=== PATIENT | female | born 1970 | race Caucasian/White ===

== ENCOUNTER 2017-05-30 20:33 | Observation (INO) | payer SELFPAY ==
[~2017-05-30] VITALS: Ht 172.7 cm; Wt 95.2 kg
--- NOTE | ~2017-05-30 | ER ---
ADMIT: 05/30/2017 RM/LOC: [address] [facility] MR#: [id number] [address] [facility] [address] [place], [place] [address] CHAR [address] [place] [address] Emergency Room Report SEX: F AGE: 47 : 1970 DATE: 05/30/2017 HISTORY OF PRESENT ILLNESS: A 47-year-old female, who is a heroin and meth drug abuser comes in with complaints of abdominal pain and short of breath over the past several days. She does have an extensive cardiac history including a two-way vessel bypass done several years ago. She has been noncompliant with her medications. Last used meth approximately 3 or 4 days ago. She describes abdominal pain as severe, times crampy, diffuse across her abdomen, shortness of breath is associated with activity. PHYSICAL EXAMINATION: GENERAL: Reveals a 47-year-old female, appears older than her stated age. LUNGS: Have diminished breath sounds at the bases bilaterally. CARDIOVASCULAR: No murmur, rapid rhythm. No gallops or rubs. ABDOMEN: Diffusely tender, but soft. No guarding or rebound. EXTREMITIES: Reveal numerous scabs over her upper extremities and lower extremities. EMERGENCY ROOM COURSE: Cardiac workup was initiated as well as an addition of a CMP. CBC was normal. EKG was sinus tachycardia. Electrolytes were within normal parameters. BNP was 28,037, a troponin of 0.071. CT of the abdomen revealed a thickened gallbladder wall. At the time of this dictation, we are waiting ultrasound of the right upper quadrant to view the gallbladder. DIAGNOSES: The patient is being admitted in the event with a diagnoses of; 1. Congestive heart failure. 2. Urinary tract infection. 3. Noncompliance with medication. She is given Lasix in the Emergency Department as well as Ativan and IV Tylenol for pain control. Juan Ram MD/ erik JOB #: [id number] CC: Adela Cade MD, Attending Physician Dorys Espinosa MD, Family Physician
--- NOTE | ~2017-05-30 | ECH ---
Transthoracic Echocardiography Report (TTE) Demographics Patient Name ALEK, Date of Study 05/31/2017 CHAR Patient Number [id number] Visit Number [id number] Date of 1970 Room Number 424 Accession Number [id number] Gender Female Age 47 year(s) Referring Rayo Richardson Circuit Board Inspector Zayra Keene MD [facility] Physician Interpreting Thu Montes MD [employer] Physician Supervising Ordering Physician Rayo Richardson MD/ANN-MARIE BURT Nurse Stress Glass Embosser Conclusions Contractility Score Summary Global Left Ventricular Hypokinesis was noted. Summary Technically difficult exam to perform. Patient restless and uncooperative due to withdrawl symptoms. Image quality is good. The estimated left ventricular ejection fraction is 15-20%. The left ventricle is severely dilated . Mild eccentric left ventricular hypertrophy. Patient refused to perform valsalva to assess diastolic function. Moderately dilated right ventricle with reduced function. Severe biatrial enlargement. Moderate mitral regurgitation by color Doppler. Mild-moderate tricuspid regurgitation by color Doppler. There is mild pulmonary hypertension. The pulmonary pressure (RVSP) is 40 mmHg. Procedure Type of Study TTE procedure:Echo Complete SF. Procedure Date Date: 05/31/2017 Start: 09:25 AM Technical Quality: Good visualization Indications:Congestive heart failure, Shortness of breath and Chest pain. Additional Indications:Meth/heroin abuse Appropriate Use Criteria: 9 Height: 72 inches Weight: 209 pounds BSA: 2.17 m Rhythm: Irregular HR: 105 bpm BP: 153/116 mmHg M-Mode/2D Measurements LV Diastolic Dimension: 7.24 cm LV Systolic Dimension: 7.12 cm LV Septum Diastolic: 0.88 cm LV PW Diastolic: 1.12 cm AO Root Dimension: 3.06 cm Cardiac Output: 2.29 l/min LA Dimension: 5.52 cm Cardiac Index: 1.06 l/min*m RV Diastolic Dimension: 3.92 cm LA volume index: 81 ml/m LVOT: 2.29 cm LVOT VTI: 5.29 cm RV Base: 4.8 cm LV Stroke volume: 21.78 ml RV Mid: 2.6 cm LV Stroke volume index: 10.04 ml/m TAPSE: 1 cm TDI-S': 6 cm/s Doppler Measurements AV Peak Velocity: 1.12 m/s MV Peak E-Wave: 1.17 m/s AV Peak Gradient: 5.06 mmHg MV Peak A-Wave: 0.72 m/s AV Mean Gradient: 2.66 mmHg MV E/A Ratio: 1.63 LVOT Peak Velocity: 0.41 m/s MV P1/2t: 32.5 msec AV Area (Continuity):1.45 cm MV Deceleration Time: 111.9 msec TR Velocity:3.05 m/s MV Area (PHT): 6.78 cm TR Gradient:37.21 mmHg PV Peak Velocity: 0.76 m/s Estimated RAP:3 mmHg PV Peak Gradient: 2.3 mmHg Estimated RVSP: 40 mmHg Estimated PASP: 40.21 mmHg E' Septal Velocity: 0.05 m/s A' Septal Velocity: 0.06 m/s E' Lateral Velocity: 0.09 m/s A' Lateral Velocity: 0.1 m/s RA Area: 29.5 cm Findings Left Ventricle The left ventricle is severely dilated . Mild eccentric left ventricular hypertrophy. Right Ventricle Moderately dilated right ventricle with reduced function. Left Atrium The left atrium is severely dilated by LA volume index measurement. Right Atrium The right atrium is severely dilated. Mitral Valve Normal mitral valve structure and function. Moderate mitral regurgitation by color Doppler. Aortic Valve Normal aortic valve structure and function. Tricuspid Valve Normal tricuspid valve structure and function. Mild-moderate tricuspid regurgitation by color Doppler. There is mild pulmonary hypertension. The pulmonary pressure (RVSP) is 40 mmHg. Pulmonic Valve Normal pulmonic valve structure and function. Mild pulmonic valve regurgitation by color Doppler. Pericardial Effusion No evidence of pericardial effusion. Miscellaneous Visualized portions of the aortic root and ascending aorta appear normal in size. Pleural Effusion No evidence of pleural effusion. Contractility Score LV regional wall motion:(0-Non visualized 1-Normal 2-Hypokinesis 3-Akinesis 4-Dyskinesis 5-Aneurysm) Signature
--- NOTE | ~2017-05-30 | HP ---
ADMIT: 05/30/2017 RM/LOC: [address] [facility] MR#: [id number] [address] [facility] [address] [place], [place] [address] CHAR [address] [place] [address] History and Physical SEX: F AGE: 47 : 1970 DATE OF SERVICE: CHIEF COMPLAINT: Shortness of breath and abdominal pain. HISTORY OF PRESENT ILLNESS: Ms. Gaston is a 47-year-old female. She has a past medical history significant for heroin use, meth use as well as coronary disease status post CABG, who is a transient and was passing through and apparently came into the ER with multiple complaints. She hurt all over, she was having chest pain, she is short of breath, she had abdominal pain. Workup in the ER included a CT and ultrasound of the abdomen and pelvis, which showed some gallbladder wall thickening but no evidence of acute cholecystitis. Chest x-ray showed diffuse pulmonary edema. Otherwise, she is a really poor historian. She keeps falling asleep while I am talking to her, but reports that she just generally has been hurting all over. She reports she has not used heroin for a month, states she stopped cold turkey. She reports she has not used meth for 4-5 days. She reports that she was previously on multiple medications of which she cannot name all of them, but notes that she is on metoprolol and furosemide but stopped taking these medications. She reports that she has some pain in her chest, she has some shortness of breath, and really kind of falls asleep at that point. In the ER, they did give her Ativan, Toradol, and Tylenol. Otherwise she reports that she has had some fevers and chills that she thinks this is all due to the meth that she is using. PAST MEDICAL HISTORY: 1. Significant for coronary artery disease, status post CABG. She reports June 2016 in [place]. 2. Hypertension. 3. History of meth use. 4. History of heroin use. 5. Nicotine dependence. 6. Hyperlipidemia. ALLERGIES: NO KNOWN MEDICAL ALLERGIES. HOME MEDICATIONS: None at this point in time. FAMILY HISTORY: She reports both her parents had coronary artery disease, but did not have more details. SOCIAL HISTORY: She has a brother who lives in [place]. Otherwise it sounds like she is probably homeless. She reports she has gone through treatment before. She recently used heroin 30 days ago, used meth 4-5 days ago, and smokes a pack of cigarettes a day, but does not use any alcohol. REVIEW OF SYSTEMS: Difficult to obtain as she kept falling asleep but otherwise was as noted above. PHYSICAL EXAMINATION: GENERAL: She is sleepy, but she does wake up and ADMIT: 05/30/2017 RM/LOC: [address] [facility] MR#: [id number] [address] [address] CHAR [address] [place] [address] History and Physical SEX: F AGE: 47 : 1970 answer questions appropriately. She moves all four extremities. HEENT: Pupils are round and reactive. Oropharynx is dry mucous membranes. NECK: Supple. HEART: Slightly tachycardic rate with a regular rhythm without any murmurs. LUNGS: Expiratory wheezes throughout. ABDOMEN: Obese, soft. Bowel sounds are present. EXTREMITIES: Have trace lower extremity edema. She does have track brumfield on both of her arms. ASSESSMENT/PLAN: 1. Acute congestive heart failure. At this time, we will go ahead and give her some IV Lasix. We will check an echo. I suspect is secondary to diastolic dysfunction with hypertension. 2. Urinary tract infection, treated. Awaiting UA and culture. 3. Chest pain. We will get set of cardiac enzymes. 4. Hypertension. 5. History of meth use. 6. History of heroin use. 7. Nicotine dependence. Otherwise we will ask Social Work to see. We will put her on nicotine patch. Adela Cade MD/ erik JOB #: [id number] CC: Adela Cade, Attending Physician Dorys Espinosa, Family Physician
== END 2017-05-31 11:05 | disposition left against medical advice (07) ==
LOC: ER 20:33 → 4PCU 23:30
PROVIDERS: ADMIT Internal Medicine
DX: I11.0 Hypertensive heart disease with heart failure (principal); I50.9 Heart failure, unspecified; N39.0 Urinary tract infection, site not specified; F17.210 Nicotine dependence, cigarettes, uncomplicated